=== PATIENT | male | born 1980 ===

== ENCOUNTER 2018-01-28 09:18 | Observation (INO) | payer OTHER ==
[2018-01-28 09:19] VITALS: BMI 27.8
[2018-01-28] MEDS ORDERED: Sodium Chloride 0.9% 1,000 ML IV STA ×2 (09:50→12:59)
[2018-01-28] MEDS ORDERED: Morphine 2 mg/ml ISec IVP STA ×4 (09:50→12:59)
--- NOTE | 2018-01-28 10:06 | ED PDOC ---
Arrival/HPI - General Chief Complaint: Abdominal Pain Time Seen by Provider: 01/28/18 09:35 Historian: Patient - History of Present Illness Narrative History of Present Illness (Text): 01/28/18 10:56 Patient is a 38 yo male with past medical history of hernia repair, cholecystectomy, and as per the patient "gastroparesis", presents to the Emergency Department with history of abdominal pain and vomiting since last night. Patient states that he "ate a buffet" last night, then had episode of vomiting last night but no pain at that time. He states he woke up this morning at 6 am with return of nausea and vomiting and left sided abdominal pain. He states he gets this frequently over the past few years and episode currently is similar to past episodes. Denies hematemesis. Denies dark or bloody stools. Denies back pain or chest pain. Denies fevers or chills. Denies chest pain or shortness of breath. Time/Duration: Prior to Arrival Symptom Onset: Gradual Past Medical History - Cardiac Hx Cardiac Disorders: Yes Hx Hypertension: Yes - Pulmonary Hx Respiratory Disorders: No - Neurological Hx Neurological Disorder: No - HEENT Hx HEENT Disorder: No - Renal Hx Renal Disorder: No - Endocrine/Metabolic Hx Endocrine Disorders: Yes Hx Diabetes Mellitus Type 1: Yes - Hematological/Oncological Hx Blood Disorders: No - Integumentary Hx Dermatological Disorder: No - Musculoskeletal/Rheumatological Hx Musculoskeletal Disorders: No - Gastrointestinal Hx Gastrointestinal Disorders: No - Genitourinary/Gynecological Hx Genitourinary Disorders: No - Psychiatric Hx Psychophysiologic Disorder: No Hx Substance Use: No - Surgical History Hx Cholecystectomy: Yes - Anesthesia Hx Anesthesia: Yes Hx Anesthesia Reactions: No Family/Social History Family/Social History: Unknown Family HX Smoking Status: Light Smoker < 10 Cigarettes Daily Hx Alcohol Use: No Hx Substance Use: No Allergies/Home Meds Allergies/Adverse Reactions: Allergies No Known Allergies Allergy (Verified 09/08/17 11:17) Home Medications: Home Meds Medication Instructions Recorded Confirmed Atorvastatin [Lipitor] 40 mg PO QPM 09/08/17 09/08/17 Dicyclomine [Dicyclomine HCl] 10 mg PO QID 09/08/17 09/08/17 Docusate [Colace] 100 mg PO BID 09/08/17 09/08/17 Famotidine 20 mg PO DAILY 09/08/17 09/08/17 Glimepiride 2 mg PO DAILY 09/08/17 09/08/17 MetFORMIN [glucOPHAGE] 1,000 mg PO BID 09/08/17 09/08/17 Metoclopramide [Reglan] 10 mg PO QID 09/08/17 09/08/17 Omeprazole 20 mg PO DAILY 09/08/17 09/08/17 Ondansetron [Zofran] 8 mg PO Q8 PRN 09/08/17 09/08/17 Review of Systems - Review of Systems Constitutional: absent: Fevers Eyes: absent: Vision Changes ENT: absent: Hearing Changes Respiratory: absent: SOB Cardiovascular: absent: Chest Pain, Palpitations Gastrointestinal: Abdominal Pain, Nausea, Vomiting. absent: Constipation, Diarrhea, Hematochezia, Hematemesis Genitourinary Male: absent: Dysuria, Frequency Musculoskeletal: absent: Back Pain Skin: absent: Rash Neurological: absent: Headache, Dizziness, Focal Weakness Endocrine: absent: Polyuria Hemo/Lymphatic: absent: Easy Bleeding Psychiatric: absent: Depression Physical Exam - Physical Exam Narrative Physical Exam (Text): 01/28/18 11:01 Head: Atraumatic. Normocephalic. Eyes: PERRL. EOMI. Conjunctivae are not pale. No jaundice. ENT: Mucous membranes are dry. Oropharynx is clear and symmetric. Neck: Supple. Full ROM. No JVD. No lymphadenopathy. No meningeal signs. Cardiovascular: Regular rate. Regular rhythm. No murmurs, rubs, or gallops. Distal pulses are intact. Pulmonary/Chest: No evidence of respiratory distress. Clear to auscultation bilaterally. No wheezing, rales or rhonchi. Abdominal: Soft and non-distended. Diffuse tenderness most pronuounce in left lower quadrant, no pulsatile masses, no incarcerated hernia palpated. Back: No CVA tenderness. No deformity. Extremities: No edema. No cyanosis. No clubbing. Full range of motion in all extremities. No calf tenderness. Skin: Skin is warm and dry. No petechiae. No purpura. Neurological: Alert, awake, and oriented. No slurred speech. Motor and sensory exam intact. Psychiatric: Good eye contact. Normal interaction, affect, and behavior. Vital Signs Reviewed: Yes Vital Signs Temp Pulse Resp BP Pulse Ox 01/28/18 15:42 71 18 135/94 H 98 01/28/18 13:40 77 16 131/74 100 01/28/18 12:00 87 18 150/66 99 01/28/18 11:24 87 18 154/64 H 100 01/28/18 10:20 92 H 19 149/75 99 01/28/18 09:25 97.9 F 83 18 135/98 H 100 Temperature: Afebrile Pulse: Regular Appearance: Positive for: Ill-Appearing, Uncomfortable Pain Distress: Moderate Mental Status: Positive for: Alert and Oriented X 3 Finger Stick Blood Glucose: 177 Medical Decision Making ED Course and Treatment: 01/28/18 11:05 Patient reports prior history of gastroparesis and states current symptoms similar to past episodes. On exam, he has diffuse pain, no rebound or guarding. IV fluids and zofran ordered after review of medication and allergies/side effects. Prior available visits reviewed, prior ultrasound reviewed. Patient states he was outside facility "2 months ago" for similar symptoms. He cannot provide name of his GI doctor at this time. Will continue serial exams, iv hydration. 01/28/18 11:36 Re-exam, patient with persistent "severe" pain. Re-exam he has focal tenderness to LLQ. CT abdomen/pelvis ordered. He denies allergies. I have reviewed risks of CT abdomen/pelvis in terms of radiation. Indication for CT is persistent severe pain that is localizing, evaluate for inflammatory/infectious or surgical process. 01/28/18 15:54 CT with no acute intraabdominal findings. Left sided pain and nausea persists. No chest pain or shortness of breath. No headache or neuro deficits. No fever. No rash. No colicky pain. Limitations of CT reviewed with patient, as symptoms persistent despite multiple boluses of medication, will admit to hospitalist service for serial exams, monitoring of symptoms. Treatment plan reviewed with patient and family, in agreement. 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 - Lab Interpretations Lab Results: 01/28/18 09:30 01/28/18 09:30 Lab Results 01/28/18 12:45: Urine Color Light yellow, Urine Appearance Clear, Urine pH 8.0, Ur Specific [place] 1.010, Urine Protein Negative, Urine Glucose (UA) Negative, Urine Ketones 15 H, Urine Blood Negative, Urine Nitrate Negative, Urine Bilirubin Negative, Urine Urobilinogen 0.2, Ur Leukocyte Esterase Negative 01/28/18 09:46: POC Glucose (mg/dL) 177 H 01/28/18 09:30: Sodium 141, Potassium 4.3, Chloride 105, Carbon Dioxide 24, Anion Gap 16, BUN 10, Creatinine 0.7 L, Est GFR ( Amer) > 60, Est GFR ( Non-Af Amer) > 60, Random Glucose 171 H, Calcium 9.6, Total Bilirubin 0.9, AST 29, ALT 48, Alkaline Phosphatase 88, Total Protein 7.7, Albumin 4.5, Globulin 3.2, Albumin/Globulin Ratio 1.4, Amylase 108, Lipase 157 01/28/18 09:30: PT 12.5, INR 1.09, APTT 28.1 01/28/18 09:30: WBC 9.5, RBC 5.39, Hgb 15.8, Hct 45.9, MCV 85.2, MCH 29.3, MCHC 34.4, RDW 13.2, Plt Count 197, MPV 9.9, Gran % 77.9 H, Lymph % (Auto) 17.0 L, [place] % (Auto) 3.9, Eos % (Auto) 0.8 L, Baso % (Auto) 0.4, Gran # 7.39 H, Lymph # (Auto) 1.6, [place] # (Auto) 0.4, Eos # (Auto) 0.1, Baso # (Auto) 0.04 - RAD Interpretation Narrative RAD Interpretations (Text): 01/28/18 14:46 Procedure: CT Abdomen and Pelvis with contrast Impression: No acute intra-abdominal findings. Dictator: Morro Holden MD Radiology Orders: 01/28/18 11:36 ABD & PELVIS IV CONTRAST ONLY [CT] Stat Pearl Glue Operator: Radiologist - EKG Interpretation EKG Interpretation (Text): EKG at 1127 normal sinus rhythm rate of [address] elevations Interpreted by ED Physician: Yes Type: 12 lead EKG - Medication Orders Current Medication Orders: Discontinued Medications Famotidine (Pepcid) 20 mg IVP STAT STA Stop: 01/28/18 09:51 Last Admin: 01/28/18 10:07 Dose: 20 mg IVP Administration Document 01/28/18 10:07 SF (Rec: 01/28/18 10:08 [email or web address] Charges for Administration # of IVP Administrations 1 Sodium Chloride (Sodium Chloride 0.9%) 1,000 mls @ 1,000 mls/hr IV .Q1H STA Stop: 01/28/18 10:49 Last Admin: 01/28/18 09:50 Dose: 1,000 mls/hr eMAR Start Stop Document 01/28/18 09:50 SF (Rec: 01/28/18 10:04 [email or web address] Intravenous Solution Start Date 01/28/18 Start Time 09:50 End Date 01/28/18 End time 10:50 Total Infusion Time 60 Sodium Chloride (Sodium Chloride 0.9%) 1,000 mls @ 1,000 mls/hr IV .Q1H STA Stop: 01/28/18 13:58 Last Admin: 01/28/18 13:04 Dose: 1,000 mls/hr eMAR Start Stop Document 01/28/18 13:04 SF (Rec: 01/28/18 13:04 [email or web address] Intravenous Solution Start Date 01/28/18 Start Time 13:04 End Date 01/28/18 End time 14:04 Total Infusion Time 60 Morphine Sulfate (Morphine) 2 mg IVP STAT STA Stop: 01/28/18 10:07 Last Admin: 01/28/18 10:21 Dose: 2 mg MAR Pain Assessment Document 01/28/18 10:21 SF (Rec: 01/28/18 10:21 [email or web address] Pain Reassessment Is this a pain reassessment? Yes Sleep Is patient sleeping during reassessment? No Presence of Pain Presence of Pain Yes IVP Administration Document 01/28/18 10:21 SF (Rec: 01/28/18 10:21 [email or web address] Charges for Administration # of IVP Administrations 1 Morphine Sulfate (Morphine) 2 mg IVP STAT STA Stop: 01/28/18 11:29 Last Admin: 01/28/18 11:32 Dose: 2 mg MAR Pain Assessment Document 01/28/18 11:32 SF (Rec: 01/28/18 11:32 [email or web address] Pain Reassessment Is this a pain reassessment? Yes Sleep Is patient sleeping during reassessment? No Presence of Pain Presence of Pain Yes Pain Scale Used Pain Scale Used Numeric Location Left, Right or Bilateral Left Upper or Lower Upper Description Description Constant IVP Administration Document 01/28/18 11:32 SF (Rec: 01/28/18 11:32 [email or web address] Charges for Administration # of IVP Administrations 1 Morphine Sulfate (Morphine) 2 mg IVP STAT STA Stop: 01/28/18 13:00 Last Admin: 01/28/18 13:00 Dose: Ondansetron HCl (Zofran Inj) 4 mg IVP ONCE ONE Stop: 01/28/18 09:51 Last Admin: 01/28/18 10:04 Dose: Ondansetron HCl (Zofran Inj) 4 mg IVP ONCE ONE Stop: 01/28/18 10:19 Last Admin: 01/28/18 10:21 Dose: 4 mg IVP Administration Document 01/28/18 10:21 SF (Rec: 01/28/18 10:21 [email or web address] Charges for Administration # of IVP Administrations 1 - Scribe Statement The provider has reviewed the documentation as recorded by the Everardo Parker All medical record entries made by the Kieraibpineda were at my direction and personally dictated by me. I have reviewed the chart and agree that the record accurately reflects my personal performance of the history, physical exam, medical decision making, and the department course for this patient. I have also personally directed, reviewed, and agree with the discharge instructions and disposition. Disposition/Present on Arrival - Present on Arrival Any Indicators Present on Arrival: No History of DVT/PE: No History of Uncontrolled Diabetes: No Urinary Catheter: No History of Decub. Ulcer: No History Surgical Site Infection Following: None - Disposition Have Diagnosis and Disposition been Completed?: Yes Diagnosis: Abdominal pain, Intractable nausea and vomiting Disposition: HOSPITALIZED Disposition Time: 15:56 Patient Plan: Admission, Observation Condition: FAIR Forms: [employer] (Kinyarwanda)
[2018-01-28 10:09] LABS: BASO # 0.04 K/mm3 (0.0-2.0); BASO % 0.4 % (0.0-3.0); EOS # 0.1 (0.0-0.7); EOS % 0.8 % (1.5-5.0); GRAN # 7.39 (1.4-6.5); GRAN % 77.9 % (50.0-68.0); HEMOGLOBIN 15.8 g/dL (14.0-18.0); LYMPH # 1.6 (1.2-3.4); MEAN CELL VOLUME 85.2 fl (80.0-105.0); MEAN CORPUSCULAR HEMOGLOBIN 29.3 pg (25.0-35.0); MEAN CORPUSCULAR HGB CONC 34.4 g/dl (31.0-37.0); MEAN PLATELET VOLUME 9.9 fl (7.0-11.0); MONO # 0.4 (0.1-0.6); MONO % 3.9 % (1.0-6.0); RBC 5.39 10^6/uL (3.5-6.1); RED CELL DISTRIBUTION WIDTH 13.2 % (11.5-14.5); WHITE BLOOD COUNT 9.5 10^3/ul (4.5-11.0)
[2018-01-28 10:12] LABS: ALB/GLOB RATIO 1.4 (1.1-1.8); ALBUMIN 4.5 g/dL (3.0-4.8); ALT/SGPT 48 U/L (7-56); AMYLASE 108 U/L (35-125); AST/SGOT 29 U/L (17-59); BLOOD UREA NITROGEN 10 mg/dL (7-21); CALCIUM 9.6 mg/dL (8.4-10.5); GFR NON-AFRICAN AMERICAN > 60; LIPASE 157 U/L (23-300)
[2018-01-28 10:13] LABS: INR 1.09; PARTIAL THROMBOPLASTIN TIME 28.1 Seconds (25.1-36.5); PROTHROMBIN TIME 12.5 SECONDS (9.4-12.5)
[2018-01-28] MEDS ORDERED: Iohexol 350 MG/100 ML VIAL ONE (11:42)
--- NOTE | 2018-01-28 12:57 | CT ---
Date of service: 01/28/2018 PROCEDURE: CT Abdomen and Pelvis with contrast HISTORY: llq abdominal pain COMPARISON: None. TECHNIQUE: Contrast dose: 100 cc of Omni 350 Radiation dose: Total exam DLP = 684 mGy-cm. This CT exam was performed using one or more of the following dose reduction techniques: Automated exposure control, adjustment of the mA and/or kV according to patient size, and/or use of iterative reconstruction technique. FINDINGS: LOWER THORAX: Unremarkable. LIVER: Unremarkable. No gross lesion or ductal dilatation. GALLBLADDER AND BILE DUCTS: Gallbladder removed PANCREAS: Unremarkable. No gross lesion or ductal dilatation. SPLEEN: Unremarkable. ADRENALS: Unremarkable. No mass. KIDNEYS AND URETERS: Unremarkable. No hydronephrosis. No solid mass. VASCULATURE: Unremarkable. No aortic aneurysm. BOWEL: Unremarkable. No obstruction. No gross mural thickening. APPENDIX: Normal appendix. PERITONEUM: Unremarkable. No free fluid. No free air. LYMPH NODES: Unremarkable. No enlarged lymph nodes. BLADDER: Unremarkable. REPRODUCTIVE: Unremarkable. BONES: No acute fracture. OTHER FINDINGS: None. IMPRESSION: No acute intra-abdominal findings
[2018-01-28 12:58] LABS: URINE APPEARANCE CLEAR (CLEAR); URINE BILIRUBIN NEGATIVE (NEGATIVE); URINE BLOOD NEGATIVE (NEGATIVE); URINE COLOR LIGHT YELLOW (YELLOW); URINE GLUCOSE (UA) NEGATIVE (NEGATIVE); URINE LEUKOCYTE ESTERASE NEGATIVE Leu/uL (NEGATIVE); URINE PROTEIN NEGATIVE mg/dL (<30 mg/dL); URINE UROBILINOGEN 0.2 E.U./dL (<1 E.U./dL)
[2018-01-28 16:27] LABS: ACETAMINOPHEN < 10.0 ug/ml (10.0-20.0); SALICYLATE < 1 mg/dL (2.0-20.0)
[2018-01-28] MEDS ORDERED: Sodium Chloride 0.9% 1,000 ML IV SCH (17:00)
--- NOTE | 2018-01-28 17:06 | CP.PCM.HP ---
<Jose David Burris - Last Filed: 01/28/18 16:57> History of Present Illness - History of Present Illness History of Present Illness: Hospitalist H&P for Dr. Nogueira -- Brock Burris DO PGY2 CC: N/V and abdominal pain HPI: Patient is a 38 yo M with PMH of pre-DM presents to [facility] due to intractable nausea, vomiting, and abdominal pain. Patient states that he went to a buffet last night and had one episode of vomiting afterwards. Patient states that his daughter ate with him and was asymptomatic. 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 Patient also admitted to clots of blood in his vomit today. Patient states that abdominal pain is sharp, constant, and localized to the left side of his abdomen. Patient states that this has happened multiple times over the last 2 years. Of note, patient admitted to daily marijuana use. He stated that these episodes would typically occur if he did not smoke marijuana for a few days, which is consistent with this episode. Otherwise, patient denies recent sick contacts, CP , SOB, fever, chills, VERA, dizziness, diarrhea/constipation, melena, or hematochezia. 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 EtOH use, 3 cigarettes/day for 20 yrs, and daily marijuana use for 20 yrs FHx: Non-contributory Present on Admission - Present on Admission Any Indicators Present on Admission: No Review of Systems - Review of Systems All systems: reviewed and no additional remarkable complaints except (12 point ROS reviewed and is negative other than what is stated in HPI.) Past Patient History - Past Social History Smoking Status: Light Smoker < 10 Cigarettes Daily - CARDIAC Hx Cardiac Disorders: Yes Hx Hypertension: Yes - PULMONARY Hx Respiratory Disorders: No - NEUROLOGICAL Hx Neurological Disorder: No - HEENT Hx HEENT Problems: No - RENAL Hx Chronic Kidney Disease: No - ENDOCRINE/METABOLIC Hx Endocrine Disorders: Yes Hx Diabetes Mellitus Type 1: Yes - HEMATOLOGICAL/ONCOLOGICAL Hx Blood Disorders: No - INTEGUMENTARY Hx Dermatological Problems: No - MUSCULOSKELETAL/RHEUMATOLOGICAL Hx Musculoskeletal Disorders: No - GASTROINTESTINAL Hx Gastrointestinal Disorders: No - GENITOURINARY/GYNECOLOGICAL Hx Genitourinary Disorders: No - PSYCHIATRIC Hx Psychophysiologic Disorder: No Hx Substance Use: No - SURGICAL HISTORY Hx Cholecystectomy: Yes - ANESTHESIA Hx Anesthesia: Yes Hx Anesthesia Reactions: No Meds Allergies/Adverse Reactions: Allergies Allergy/AdvReac Type Severity Reaction Status Date / Time No Known Allergies Allergy Verified 01/28/18 19:09 Physical Exam - Constitutional Appears: In Acute Distress (vomiting) - Head Exam Head Exam: NORMAL INSPECTION - Eye Exam Eye Exam: EOMI, Normal appearance Pupil Exam: Miosis - ENT Exam ENT Exam: Mucous Membranes Moist, Normal Exam - Neck Exam Neck exam: Positive for: Normal Inspection. Negative for: Lymphadenopathy, Tenderness - Respiratory Exam Respiratory Exam: Clear to Auscultation Bilateral. absent: Chest Wall Tenderness, Rales, Rhonchi, Wheezes, Respiratory Distress - Cardiovascular Exam Cardiovascular Exam: RRR, +S1, +S2. absent: Diastolic murmur, Gallop, Rubs, Systolic Murmur - GI/Abdominal Exam GI & Abdominal Exam: Normal Bowel Sounds, Soft, Tenderness (left-sided). absent : Distended, Guarding, Hernia, Mass, Rebound - Extremities Exam Extremities exam: Positive for: normal capillary refill, normal inspection - Neurological Exam Neurological exam: Alert, CN II-XII Intact, Oriented x3 - Psychiatric Exam Psychiatric exam: Normal Affect - Skin Skin Exam: Dry, Intact, Normal Color, Warm Results - Vital Signs Recent Vital Signs: Last Vital Signs Temp 97.8 F 01/28/18 16:46 Pulse 93 H 01/28/18 16:46 Resp 19 01/28/18 16:46 BP 147/95 H 01/28/18 16:46 Pulse Ox 100 01/28/18 16:46 - Labs Result Diagrams: 01/28/18 09:30 01/28/18 09:30 Labs: Laboratory Results - last 24 hr 01/28/18 01/28/18 01/28/18 09:30 09:30 09:30 WBC 9.5 RBC 5.39 Hgb 15.8 Hct 45.9 MCV 85.2 MCH 29.3 MCHC 34.4 RDW 13.2 Plt Count 197 MPV 9.9 Gran % 77.9 H Lymph % (Auto) 17.0 L Rush % (Auto) 3.9 Eos % (Auto) 0.8 L Baso % (Auto) 0.4 Gran # 7.39 H Lymph # (Auto) 1.6 Rush # (Auto) 0.4 Eos # (Auto) 0.1 Baso # (Auto) 0.04 PT 12.5 INR 1.09 APTT 28.1 Sodium 141 Potassium 4.3 Chloride 105 Carbon Dioxide 24 Anion Gap 16 BUN 10 Creatinine 0.7 L Est GFR ( Amer) > 60 Est GFR (Non-Af Amer) > 60 POC Glucose (mg/dL) Random Glucose 171 H Calcium 9.6 Total Bilirubin 0.9 AST 29 ALT 48 Alkaline Phosphatase 88 Total Protein 7.7 Albumin 4.5 Globulin 3.2 Albumin/Globulin Ratio 1.4 Amylase 108 Lipase 157 Urine Color Urine Appearance Urine pH Ur Specific Parker Urine Protein Urine Glucose (UA) Urine Ketones Urine Blood Urine Nitrate Urine Bilirubin Urine Urobilinogen Ur Leukocyte Esterase Salicylates Acetaminophen Alcohol, Quantitative 01/28/18 01/28/18 01/28/18 09:46 12:45 16:05 WBC RBC Hgb Hct MCV MCH MCHC RDW Plt Count MPV Gran % Lymph % (Auto) Rush % (Auto) Eos % (Auto) Baso % (Auto) Gran # Lymph # (Auto) Rush # (Auto) Eos # (Auto) Baso # (Auto) PT INR APTT Sodium Potassium Chloride Carbon Dioxide Anion Gap BUN Creatinine Est GFR ( Amer) Est GFR (Non-Af Amer) POC Glucose (mg/dL) 177 H Random Glucose Calcium Total Bilirubin AST ALT Alkaline Phosphatase Total Protein Albumin Globulin Albumin/Globulin Ratio Amylase Lipase Urine Color Light yellow Urine Appearance Clear Urine pH 8.0 Ur Specific Parker 1.010 Urine Protein Negative Urine Glucose (UA) Negative Urine Ketones 15 H Urine Blood Negative Urine Nitrate Negative Urine Bilirubin Negative Urine Urobilinogen 0.2 Ur Leukocyte Esterase Negative Salicylates < 1 L Acetaminophen < 10.0 L Alcohol, Quantitative 01/28/18 16:05 WBC RBC Hgb Hct MCV MCH MCHC RDW Plt Count MPV Gran % Lymph % (Auto) Rush % (Auto) Eos % (Auto) Baso % (Auto) Gran # Lymph # (Auto) Rush # (Auto) Eos # (Auto) Baso # (Auto) PT INR APTT Sodium Potassium Chloride Carbon Dioxide Anion Gap BUN Creatinine Est GFR ( Amer) Est GFR (Non-Af Amer) POC Glucose (mg/dL) Random Glucose Calcium Total Bilirubin AST ALT Alkaline Phosphatase Total Protein Albumin Globulin Albumin/Globulin Ratio Amylase Lipase Urine Color Urine Appearance Urine pH Ur Specific Parker Urine Protein Urine Glucose (UA) Urine Ketones Urine Blood Urine Nitrate Urine Bilirubin Urine Urobilinogen Ur Leukocyte Esterase Salicylates Acetaminophen Alcohol, Quantitative < 10 Assessment & Plan - Assessment and Plan (Free Text) Assessment: 38 yo M with PMH of pre-DM admitted for evaluation and treatment of intractable nausea, vomiting with blood clots, and abdominal pain. Intractable n/v likely 2/ 2 gastroenteritis vs. marijuana withdrawal. Blood clots likely 2/2 margie cooney tear from repeated retching. Plan: 1. Intractable abdominal pain, nausea, and vomiting with blood clots - CT abd/pelvis negative - LFT's and lipase WNL - Received 2L NS in ED, will continue at 100 cc/hr - Protonix daily - Zofran for nausea; EKG NSR, QTc 445 - Morphine for pain - NPO - GI consulted 2. Substance abuse - Tylenol, EtOH, ASA, and UDS pending - Counselled patient on risks of substance abuse and advised cessation 3. H/o pre-diabetes - Will monitor blood glucose in AM labs - Hold home medications GI/DVT PPx - Protonix - DVT PPx not indicated at this time Patient seen and discussed in detail with Dr. Nogueira. Brock Burris DO PGY2 <Prema Nogueira R - Last Filed: 01/30/18 06:55> Results - Vital Signs Recent Vital Signs: Last Vital Signs Temp 98.0 F 01/29/18 06:00 Pulse 86 01/29/18 06:00 Resp 20 01/29/18 06:00 BP 126/85 01/29/18 06:00 Pulse Ox 100 01/29/18 06:00 - Labs Result Diagrams: 01/29/18 07:00 01/29/18 07:00 Labs: Laboratory Results - last 24 hr 01/29/18 01/29/18 01/29/18 07:00 07:00 08:30 WBC 12.3 H D RBC 4.78 Hgb 13.5 L D Hct 41.3 L MCV 86.4 MCH 28.2 MCHC 32.7 RDW 13.3 Plt Count 182 MPV 9.9 Sodium 141 Potassium 3.3 L Chloride 107 Carbon Dioxide 26 Anion Gap 11 BUN 10 Creatinine 0.7 L Est GFR ( Amer) > 60 Est GFR (Non-Af Amer) > 60 POC Glucose (mg/dL) 105 Random Glucose 88 Calcium 8.6 Phosphorus 2.7 Magnesium 2.1 Total Bilirubin 0.5 AST 33 ALT 41 Alkaline Phosphatase 65 Total Protein 6.1 Albumin 3.6 Globulin 2.6 Albumin/Globulin Ratio 1.4 Urine Opiates Screen Urine Methadone Screen Ur Barbiturates Screen Ur Phencyclidine Scrn Ur Amphetamines Screen U Benzodiazepines Scrn U Oth Cocaine Metabols U Cannabinoids Screen 01/29/18 01/29/18 08:55 11:39 WBC RBC Hgb Hct MCV MCH MCHC RDW Plt Count MPV Sodium Potassium Chloride Carbon Dioxide Anion Gap BUN Creatinine Est GFR ( Amer) Est GFR (Non-Af Amer) POC Glucose (mg/dL) 94 Random Glucose Calcium Phosphorus Magnesium Total Bilirubin AST ALT Alkaline Phosphatase Total Protein Albumin Globulin Albumin/Globulin Ratio Urine Opiates Screen Positive H Urine Methadone Screen Negative Ur Barbiturates Screen Negative Ur Phencyclidine Scrn Negative Ur Amphetamines Screen Negative U Benzodiazepines Scrn Negative U Oth Cocaine Metabols Negative U Cannabinoids Screen Positive H Attending/Attestation - Attestation I have personally seen and examined this patient.: Yes I have fully participated in the care of the patient.: Yes I have reviewed all pertinent clinical information: Yes Notes (Text): Patient seen and examined by me at 4:15PM with resident 01/28/18. Case including HPI, physical exam, and assessment and plan discussed with resident. Agree with above with following additions/corrections. Patient is a 38 year old male with past medical history significant for prediabetes, chronic marijuana use, abdominal pain, and ?gastroparesis that presented to the hospital with intractable nausea, vomiting, no abdominal pain. Patient states that he went type of a last night around 7 PM. He states around 8 PM he started to have abdominal pain and threw up once. Vomitus was nonbilious and nonbloody. Patient states he woke up the next morning to go to work when he started to feel nauseous and continued to have abdominal pain. He states he threw up approximately 9-10 times throughout the day and then presented to the emergency room. Patient states that he now notices blood and some blood clots in his vomit. Abdominal pain is mostly left-sided and radiates to the back. Pain is sharp and constant. Patient did not try any medications for this at home. Pain medications in the emergency room are helping the pain. Patient states that this has happened in the past. Patient states last marijuana use was approximately 2-3 days ago. He denies any headaches or dizziness. No fevers or chills. No chest pain or shortness of breath. No dysuria. No diarrhea or constipation. 12 point review of systems reviewed by me. Please see HPI. All other systems are negative. Family History: Mom is alive and healthy. Father is alive and healthy. Medications at home: Patient takes Percocet once in a while for abdominal pain Physical exam: General: Awake and alert sitting up in bed in mild distress HEENT: Normocephalic atraumatic. Pupils equal reactive. No scleral icterus. Oropharynx is pink and moist. No pharyngeal erythema or exudate appreciated. Neck is supple. Hearing grossly intact. Ears and nose externally unremarkable Cardiovascular: Normal rhythm. Normal S1, S2. No murmurs, rubs, or gallops appreciated Pulmonary: Normal respiratory effort. No rhonchi, rales or wheezing appreciated. Gastrointestinal: Soft, nondistended. Positive generalized tenderness. Positive bowel sounds all 4 quadrants, no guarding. No organomegaly appreciated. Musculoskeletal: Normal range of motion all extremities, no calf tenderness, no edema appreciated. No CVA tenderness. Central nervous system: AAOx3. CN2-12 grossly intact. 5/5 muscle strength all extremities. Dermatologic: Skin warm and dry Assessment and plan: Patient is a 38 year old male with past medical history significant for pre-diabetes, chronic marijuana use, abdominal pain, and ? gastroparesis that presented to the hospital with intractable nausea, vomiting, no abdominal pain. 1. Abdominal pain. Intractable nausea and vomiting. GI consulted, follow-up recommendations. Zofran as needed. Placed on pain medications. CT abdomen and pelvis per radiology showed no acute intra-abdominal findings. Nothing by mouth. Placed on IV fluids. 2. Substance abuse. UDS positive for marijuana. Patient counseled at length on cessation. 3. History of pre-diabetes. Patient is currently not taking daily medications. We'll monitor blood glucose for now. 4. GI/ DVT prophylaxis. Protonix and ambulation. Case was discussed in detail with the patient regarding current diagnosis and treatment plan.
[2018-01-28] MEDS ORDERED: Morphine 2 mg/ml ISec IVP PRN (17:14)
--- NOTE | 2018-01-28 17:33 | CARD ---
APPROVED REPORT Date of service: 01/28/2018 EKG Measurement Heart [id number] <Conclusion> Normal sinus rhythm Normal ECG
[2018-01-28 18:46] VITALS: RESP 20
[2018-01-28] MEDS ORDERED: Pneumococcal 23-Valent Vaccine IM ONE (23:27)
--- NOTE | 2018-01-29 06:34 | CP.PCM.PN ---
Subjective - Date & Time of Evaluation Date of Evaluation: 01/29/18 Time of Evaluation: 07:10 - Subjective Subjective: PGY-1 Vanessa Larsen D.O. Medicine progress note for Dr. Nogueira's service: Patient was seen and examined this morning. Objective - Vital Signs/Intake and Output Vital Signs (last 24 hours): Temp Pulse Resp BP Pulse Ox 98.8 F 98 H 20 151/108 H 98 01/28/18 23:08 01/28/18 23:08 01/28/18 23:08 01/28/18 23:08 01/28/18 18:45 - Medications Medications: Current Medications Sodium Chloride (Sodium Chloride 0.9%) 1,000 mls @ 100 mls/hr IV .Q10H INOCENCIA Last Admin: 01/28/18 18:00 Dose: 100 mls/hr Morphine Sulfate (Morphine) 1 mg IVP Q6H PRN PRN Reason: Pain, severe (8-10) Last Admin: 01/29/18 02:20 Dose: 1 mg Ondansetron HCl (Zofran Inj) 4 mg IVP Q6H PRN PRN Reason: Nausea/Vomiting Last Admin: 01/29/18 06:04 Dose: 4 mg Pantoprazole Sodium (Protonix Inj) 40 mg IVP DAILY INOCENCIA - Labs Labs: PT 12.5 SECONDS (9.4-12.5) 01/28/18 09:30 INR 1.09 01/28/18 09:30 APTT 28.1 Seconds (25.1-36.5) 01/28/18 09:30
[2018-01-29 06:55] VITALS: BP 126/85; PULSE 86; TEMP 98; O2SAT 100
[2018-01-29] MEDS ORDERED: Dextrose 50% SYRINGE Inj (50 ml) IV PRN (08:10)
[2018-01-29 08:11] LABS: HEMOGLOBIN 13.5 g/dL (14.0-18.0); MEAN CELL VOLUME 86.4 fl (80.0-105.0); MEAN CORPUSCULAR HEMOGLOBIN 28.2 pg (25.0-35.0); MEAN CORPUSCULAR HGB CONC 32.7 g/dl (31.0-37.0); MEAN PLATELET VOLUME 9.9 fl (7.0-11.0); RBC 4.78 10^6/uL (3.5-6.1); RED CELL DISTRIBUTION WIDTH 13.3 % (11.5-14.5); WHITE BLOOD COUNT 12.3 10^3/ul (4.5-11.0)
[2018-01-29 08:54] LABS: ALB/GLOB RATIO 1.4 (1.1-1.8); ALBUMIN 3.6 g/dL (3.0-4.8); ALT/SGPT 41 U/L (7-56); AST/SGOT 33 U/L (17-59); BLOOD UREA NITROGEN 10 mg/dL (7-21); CALCIUM 8.6 mg/dL (8.4-10.5); GFR NON-AFRICAN AMERICAN > 60
[2018-01-29 09:34] LABS: BARBITURATES, UR NEGATIVE (NEGATIVE); BENZODIAZEPINES, UR NEGATIVE (NEGATIVE); OPIATES, UR POSITIVE (NEGATIVE); PHENCYCLIDINE, UR NEGATIVE (NEGATIVE)
--- NOTE | 2018-01-29 09:58 | CP.PCM.DIS ---
Provider - Provider Date of Admission: 01/28/18 15:50 Attending physician: Prema Nogueira DO Primary care physician: Dr. Nicolas Consults: GI (Kan) Time Spent in preparation of Discharge (in minutes): 45 Diagnosis - Discharge Diagnosis (1) Intractable nausea and vomiting Status: Acute Priority: High (2) Marijuana abuse, continuous Status: Chronic Priority: Medium Hospital Course - Lab Results Lab Results: Most Recent Lab Values WBC 12.3 10^3/ul (4.5-11.0) H D 01/29/18 07:00 RBC 4.78 10^6/uL (3.5-6.1) 01/29/18 07:00 Hgb 13.5 g/dL (14.0-18.0) L D 01/29/18 07:00 Hct 41.3 % (42.0-52.0) L 01/29/18 07:00 MCV 86.4 fl (80.0-105.0) 01/29/18 07:00 MCH 28.2 pg (25.0-35.0) 01/29/18 07:00 MCHC 32.7 g/dl (31.0-37.0) 01/29/18 07:00 RDW 13.3 % (11.5-14.5) 01/29/18 07:00 Plt Count 182 10^3/uL (120.0-450.0) 01/29/18 07:00 MPV 9.9 fl (7.0-11.0) 01/29/18 07:00 Gran % 77.9 % (50.0-68.0) H 01/28/18 09:30 Lymph % (Auto) 17.0 % (22.0-35.0) L 01/28/18 09:30 Ponce % (Auto) 3.9 % (1.0-6.0) 01/28/18 09:30 Eos % (Auto) 0.8 % (1.5-5.0) L 01/28/18 09:30 Baso % (Auto) 0.4 % (0.0-3.0) 01/28/18 09:30 Gran # 7.39 (1.4-6.5) H 01/28/18 09:30 Lymph # (Auto) 1.6 (1.2-3.4) 01/28/18 09:30 Ponce # (Auto) 0.4 (0.1-0.6) 01/28/18 09:30 Eos # (Auto) 0.1 (0.0-0.7) 01/28/18 09:30 Baso # (Auto) 0.04 K/mm3 (0.0-2.0) 01/28/18 09:30 PT 12.5 SECONDS (9.4-12.5) 01/28/18 09:30 INR 1.09 01/28/18 09:30 APTT 28.1 Seconds (25.1-36.5) 01/28/18 09:30 Sodium 141 mmol/L (132-148) 01/29/18 07:00 Potassium 3.3 mmol/L (3.6-5.0) L 01/29/18 07:00 Chloride 107 mmol/L (98-107) 01/29/18 07:00 Carbon Dioxide 26 mmol/L (21-33) 01/29/18 07:00 Anion Gap 11 (10-20) 01/29/18 07:00 BUN 10 mg/dL (7-21) 01/29/18 07:00 Creatinine 0.7 mg/dl (0.8-1.5) L 01/29/18 07:00 Est GFR ( Amer) > 60 01/29/18 07:00 Est GFR (Non-Af Amer) > 60 01/29/18 07:00 POC Glucose (mg/dL) 105 mg/dL (65-110) 01/29/18 08:30 Random Glucose 88 mg/dL (70-110) 01/29/18 07:00 Calcium 8.6 mg/dL (8.4-10.5) 01/29/18 07:00 Phosphorus 2.7 mg/dL (2.5-4.5) 01/29/18 07:00 Magnesium 2.1 mg/dL (1.7-2.2) 01/29/18 07:00 Total Bilirubin 0.5 mg/dL (0.2-1.3) 01/29/18 07:00 AST 33 U/L (17-59) 01/29/18 07:00 ALT 41 U/L (7-56) 01/29/18 07:00 Alkaline Phosphatase 65 U/L (38-126) 01/29/18 07:00 Total Protein 6.1 g/dL (5.8-8.3) 01/29/18 07:00 Albumin 3.6 g/dL (3.0-4.8) 01/29/18 07:00 Globulin 2.6 gm/dL 01/29/18 07:00 Albumin/Globulin Ratio 1.4 (1.1-1.8) 01/29/18 07:00 Amylase 108 U/L (35-125) 01/28/18 09:30 Lipase 157 U/L (23-300) 01/28/18 09:30 Urine Color Light yellow (YELLOW) 01/28/18 12:45 Urine Appearance Clear (CLEAR) 01/28/18 12:45 Urine pH 8.0 (4.7-8.0) 01/28/18 12:45 Ur Specific [place] 1.010 (1.005-1.035) 01/28/18 12:45 Urine Protein Negative mg/dL (<30 mg/dL) 01/28/18 12:45 Urine Glucose (UA) Negative mg/dL (NEGATIVE) 01/28/18 12:45 Urine Ketones 15 mg/dL (NEGATIVE) H 01/28/18 12:45 Urine Blood Negative (NEGATIVE) 01/28/18 12:45 Urine Nitrate Negative (NEGATIVE) 01/28/18 12:45 Urine Bilirubin Negative (NEGATIVE) 01/28/18 12:45 Urine Urobilinogen 0.2 E.U./dL (<1 E.U./dL) 01/28/18 12:45 Ur Leukocyte Esterase Negative Aleida/uL (NEGATIVE) 01/28/18 12:45 Salicylates < 1 mg/dL (2.0-20.0) L 01/28/18 16:05 Urine Opiates Screen Positive (NEGATIVE) H 01/29/18 08:55 Urine Methadone Screen Negative (NEGATIVE) 01/29/18 08:55 Acetaminophen < 10.0 ug/ml (10.0-20.0) L 01/28/18 16:05 Ur Barbiturates Screen Negative (NEGATIVE) 01/29/18 08:55 Ur Phencyclidine Scrn Negative (NEGATIVE) 01/29/18 08:55 Ur Amphetamines Screen Negative (NEGATIVE) 01/29/18 08:55 U Benzodiazepines Scrn Negative (NEGATIVE) 01/29/18 08:55 U Oth Cocaine Metabols Negative (NEGATIVE) 01/29/18 08:55 U Cannabinoids Screen Positive (NEGATIVE) H 01/29/18 08:55 Alcohol, Quantitative < 10 mg/dL (0-10) 01/28/18 16:05 - Hospital Course Hospital Course: Patient is a 38 yo M with PMH of pre-DM presents to [facility] due to intractable nausea, vomiting, and abdominal pain. Patient states that he went to a buffet last night and had one episode of vomiting afterwards. Patient states that his daughter ate with him and was asymptomatic. 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 Patient also admitted to clots of blood in his vomit today. Patient states that abdominal pain is sharp, constant, and localized to the left side of his abdomen. Patient states that this has happened multiple times over the last 2 years. Of note, patient admitted to daily marijuana use. He stated that these episodes would typically occur if he did not smoke marijuana for a few days, which is consistent with this episode. Otherwise, patient denies recent sick contacts, CP , SOB, fever, chills, VERA, dizziness, diarrhea/constipation, melena, or hematochezia. CT A/P did not show acute findings. GI saw the patient and conclude daily marijuana use may have contributed to cyclical vomiting syndrome and or idiopathic gastroparesis. Patient will benefit from outpatient gastric emptying study. Upon discharge, patient was tolerating a regular diet. He was no longer having nausea or vomiting. His blood glucose were well controlled. Discharge Exam - Head Exam Head Exam: NORMAL INSPECTION - Eye Exam Eye Exam: EOMI, Normal appearance, PERRL - ENT Exam ENT Exam: Mucous Membranes Moist, Normal Exam - Neck Exam Neck exam: Full Rom, Normal Inspection - Respiratory Exam Respiratory Exam: Clear to PA & Lateral, NORMAL BREATHING PATTERN, UNREMARKABLE - Cardiovascular Exam Cardiovascular Exam: REGULAR RHYTHM, +S1, +S2 - GI/Abdominal Exam GI & Abdominal Exam: Normal Bowel Sounds, Soft, Unremarkable. absent: Tenderness - Rectal Exam Rectal Exam: Deferred - Extremities Exam Extremities exam: normal inspection, pedal pulses present - Back Exam Back exam: NORMAL INSPECTION - Neurological Exam Neurological exam: Alert, CN II-XII Intact, Normal Gait, Oriented x3 - Psychiatric Exam Psychiatric exam: Normal Affect, Normal Mood - Skin Skin Exam: Dry, Intact, Normal Color, Warm Discharge Plan - Discharge Medications Prescriptions: Ondansetron [Zofran] 4 mg PO Q8H #5 tab - Follow Up Plan Condition: IMPROVED Disposition: HOME/ ROUTINE Patient education suggested?: Yes Instructions: Acute Abdomen (Belly Pain), Adult (DC), Nausea and Vomiting, Adult (DC), Quitting Smoking, Marijuana Use and Addiction (DC) Additional Instructions: You are being discharged from [facility]. You are highly encouraged to stop smoking marijuana. You may resume your home medications for diabetes. You may take Zofran 4 mg every 8 hours as needed for nausea. Discontinue Percocet. Please follow-up with your primary care physician, Dr. Nicolas, within 3-5 days of discharge. Also, please follow-up with your electronic prepress system operator within 1 week of discharge. If symptoms return, please present to the nearest emergency room.
[2018-01-29] MEDS ORDERED: Potassium Chloride 20 mEq ER Tab PO ONE (10:05)
--- NOTE | 2018-01-29 10:58 | CP.PCM.CON ---
<Jose Rafael Ingram - Last Filed: 01/29/18 10:50> History of Present Illness - History of Present Illness History of Present Illness: GI Fellow PGY4, consult note Delano Rosas is an interesting 38M with history of chronic abdominal pain/N/V, DM who presents with intractable vomiting. 2 days ago, patient developed several large, forceful episodes of emesis that eventually became bloody. He then developed abdominal pain shortly after. He generally takes zofran at home when these events happen, but could not keep it down this time. Patient had BM yesterday, and was brown, no melena. He is feeling better after zofran IV and NPO. Patient is hungry now. No severe abdominal pain. Importantly, patient use marijuana chronically and daily. He also uses opiate medications frequently. He has an appointment with a GI physician in [place] in 2 weeks. PMHx - as above. PSHx - lap nakita FMHx - unremarkable SocHx - heavy marijuana user, denies recent etoh. 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 12pt ROS neg except for above. Past Patient History - Past Social History Smoking Status: Former Smoker - CARDIAC Hx Cardiac Disorders: Yes Hx Hypertension: Yes - PULMONARY Hx Respiratory Disorders: No - NEUROLOGICAL Hx Neurological Disorder: No - HEENT Hx HEENT Problems: No - RENAL Hx Chronic Kidney Disease: No - ENDOCRINE/METABOLIC Hx Endocrine Disorders: Yes Hx Diabetes Mellitus Type 1: Yes - HEMATOLOGICAL/ONCOLOGICAL Hx Blood Disorders: No - INTEGUMENTARY Hx Dermatological Problems: No - MUSCULOSKELETAL/RHEUMATOLOGICAL Hx Musculoskeletal Disorders: No Hx Falls: No - GASTROINTESTINAL Hx Gastrointestinal Disorders: Yes (INGUINAL HERNIA REPAIR) Hx Gall Bladder Disease: Yes (CHOLECYSTECTOMY) - GENITOURINARY/GYNECOLOGICAL Hx Genitourinary Disorders: No - PSYCHIATRIC Hx Psychophysiologic Disorder: Yes (MARIJUANA USE DAILY X 20 YRS) Hx Substance Use: No - SURGICAL HISTORY Hx Surgeries: Yes Hx Cholecystectomy: Yes - ANESTHESIA Hx Anesthesia: Yes Hx Anesthesia Reactions: No Meds Allergies/Adverse Reactions: Allergies Allergy/AdvReac Type Severity Reaction Status Date / Time No Known Allergies Allergy Verified 01/28/18 19:09 - Medications Medications: Current Medications Dextrose (Dextrose 50% Inj) 0 ml IV STAT PRN; Protocol PRN Reason: Hypoglycemia Protocol Sodium Chloride (Sodium Chloride 0.9%) 1,000 mls @ 100 mls/hr IV .Q10H INOCENCIA Last Admin: 01/28/18 18:00 Dose: 100 mls/hr Dextrose (Dextrose 5% In Water 1000 Ml) 1,000 mls @ 0 mls/hr IV .Q0M PRN; Protocol; Per Protocol PRN Reason: Hypoglycemia Protocol Insulin Human Lispro (Humalog Low) 0 units SC ACHS INOCENCIA PRN Reason: Protocol Ondansetron HCl (Zofran Inj) 4 mg IVP Q6H PRN PRN Reason: Nausea/Vomiting Last Admin: 01/29/18 06:04 Dose: 4 mg Pantoprazole Sodium (Protonix Inj) 40 mg IVP DAILY [facility] Last Admin: 01/29/18 09:30 Dose: 40 mg Physical Exam - Constitutional Appears: Well, No Acute Distress - Head Exam Head Exam: NORMAL INSPECTION - Eye Exam Eye Exam: Normal appearance - ENT Exam ENT Exam: Mucous Membranes Moist, Normal Exam - Neck Exam Neck exam: Positive for: Normal Inspection - Respiratory Exam Respiratory Exam: Clear to Auscultation Bilateral, NORMAL BREATHING PATTERN - Cardiovascular Exam Cardiovascular Exam: REGULAR RHYTHM, +S1, +S2 - GI/Abdominal Exam GI & Abdominal Exam: Normal Bowel Sounds, Soft, Tenderness. absent: Distended Additional comments: Mild tenderness to the LUQ - Extremities Exam Extremities exam: Positive for: normal inspection - Neurological Exam Neurological exam: Alert, CN II-XII Intact, Oriented x3 - Psychiatric Exam Psychiatric exam: Normal Affect, Normal Mood - Skin Skin Exam: Dry, Normal Color Results - Vital Signs Recent Vital Signs: Last Vital Signs Temp 98.0 F 01/29/18 06:00 Pulse 86 01/29/18 06:00 Resp 20 01/29/18 06:00 BP 126/85 01/29/18 06:00 Pulse Ox 100 01/29/18 06:00 - Labs Result Diagrams: 01/29/18 07:00 01/29/18 07:00 Labs: Laboratory Results - last 24 hr 01/28/18 01/28/18 01/29/18 16:05 16:05 07:00 WBC 12.3 H D RBC 4.78 Hgb 13.5 L D Hct 41.3 L MCV 86.4 MCH 28.2 MCHC 32.7 RDW 13.3 Plt Count 182 MPV 9.9 Sodium Potassium Chloride Carbon Dioxide Anion Gap BUN Creatinine Est GFR ( Amer) Est GFR (Non-Af Amer) POC Glucose (mg/dL) Random Glucose Calcium Phosphorus Magnesium Total Bilirubin AST ALT Alkaline Phosphatase Total Protein Albumin Globulin Albumin/Globulin Ratio Salicylates < 1 L Urine Opiates Screen Urine Methadone Screen Acetaminophen < 10.0 L Ur Barbiturates Screen Ur Phencyclidine Scrn Ur Amphetamines Screen U Benzodiazepines Scrn U Oth Cocaine Metabols U Cannabinoids Screen Alcohol, Quantitative < 10 01/29/18 01/29/18 01/29/18 07:00 08:30 08:55 WBC RBC Hgb Hct MCV MCH MCHC RDW Plt Count MPV Sodium 141 Potassium 3.3 L Chloride 107 Carbon Dioxide 26 Anion Gap 11 BUN 10 Creatinine 0.7 L Est GFR ( Amer) > 60 Est GFR (Non-Af Amer) > 60 POC Glucose (mg/dL) 105 Random Glucose 88 Calcium 8.6 Phosphorus 2.7 Magnesium 2.1 Total Bilirubin 0.5 AST 33 ALT 41 Alkaline Phosphatase 65 Total Protein 6.1 Albumin 3.6 Globulin 2.6 Albumin/Globulin Ratio 1.4 Salicylates Urine Opiates Screen Positive H Urine Methadone Screen Negative Acetaminophen Ur Barbiturates Screen Negative Ur Phencyclidine Scrn Negative Ur Amphetamines Screen Negative U Benzodiazepines Scrn Negative U Oth Cocaine Metabols Negative U Cannabinoids Screen Positive H Alcohol, Quantitative Assessment & Plan - Assessment and Plan (Free Text) Assessment: 38M with likely gastroparesis presenting with acute on chronic vomiting and likely Giana-Rothman tear. #Hematemesis #Acute on chronic vomiting #Gastroparesis #Opiate use #Marijuana use disorder #DM PLAN: -Patient is improved with zofran. Will start on CLD and advance as tolerated. -Education on avoidance of opiates and marijuana -Continue DM care -Encouraged to f/u with scheduled GI physician in two weeks. Patient agreeable. -Start full liquid diet and advance as tolerated. -Recommend 6 small meals per day with low fat. Okay to d/c patient from GI perspective if tolerating diet. -We will signoff at this time. Please call as needed. - Date & Time Date: 01/29/18 Time: 10:59 <Jose Roberto Kan - Last Filed: 01/29/18 12:32> Meds - Medications Medications: Current Medications Dextrose (Dextrose 50% Inj) 0 ml IV STAT PRN; Protocol PRN Reason: Hypoglycemia Protocol Sodium Chloride (Sodium Chloride 0.9%) 1,000 mls @ 100 mls/hr IV .Q10H [facility] Last Admin: 01/28/18 18:00 Dose: 100 mls/hr Dextrose (Dextrose 5% In Water 1000 Ml) 1,000 mls @ 0 mls/hr IV .Q0M PRN; Protocol; Per Protocol PRN Reason: Hypoglycemia Protocol Insulin Human Lispro (Humalog Low) 0 units SC ACHS INOCENCIA PRN Reason: Protocol Last Admin: 01/29/18 11:45 Dose: Not Given Ondansetron HCl (Zofran Inj) 4 mg IVP Q6H PRN PRN Reason: Nausea/Vomiting Last Admin: 01/29/18 06:04 Dose: 4 mg Pantoprazole Sodium (Protonix Inj) 40 mg IVP DAILY [facility] Last Admin: 01/29/18 09:30 Dose: 40 mg Results - Vital Signs Recent Vital Signs: Last Vital Signs Temp 98.0 F 01/29/18 06:00 Pulse 86 01/29/18 06:00 Resp 20 01/29/18 06:00 BP 126/85 01/29/18 06:00 Pulse Ox 100 01/29/18 06:00 - Labs Result Diagrams: 01/29/18 07:00 01/29/18 07:00 Labs: Laboratory Results - last 24 hr 01/28/18 01/28/18 01/29/18 16:05 16:05 07:00 WBC 12.3 H D RBC 4.78 Hgb 13.5 L D Hct 41.3 L MCV 86.4 MCH 28.2 MCHC 32.7 RDW 13.3 Plt Count 182 MPV 9.9 Sodium Potassium Chloride Carbon Dioxide Anion Gap BUN Creatinine Est GFR ( Amer) Est GFR (Non-Af Amer) POC Glucose (mg/dL) Random Glucose Calcium Phosphorus Magnesium Total Bilirubin AST ALT Alkaline Phosphatase Total Protein Albumin Globulin Albumin/Globulin Ratio Salicylates < 1 L Urine Opiates Screen Urine Methadone Screen Acetaminophen < 10.0 L Ur Barbiturates Screen Ur Phencyclidine Scrn Ur Amphetamines Screen U Benzodiazepines Scrn U Oth Cocaine Metabols U Cannabinoids Screen Alcohol, Quantitative < 10 01/29/18 01/29/18 01/29/18 07:00 08:30 08:55 WBC RBC Hgb Hct MCV MCH MCHC RDW Plt Count MPV Sodium 141 Potassium 3.3 L Chloride 107 Carbon Dioxide 26 Anion Gap 11 BUN 10 Creatinine 0.7 L Est GFR ( Amer) > 60 Est GFR (Non-Af Amer) > 60 POC Glucose (mg/dL) 105 Random Glucose 88 Calcium 8.6 Phosphorus 2.7 Magnesium 2.1 Total Bilirubin 0.5 AST 33 ALT 41 Alkaline Phosphatase 65 Total Protein 6.1 Albumin 3.6 Globulin 2.6 Albumin/Globulin Ratio 1.4 Salicylates Urine Opiates Screen Positive H Urine Methadone Screen Negative Acetaminophen Ur Barbiturates Screen Negative Ur Phencyclidine Scrn Negative Ur Amphetamines Screen Negative U Benzodiazepines Scrn Negative U Oth Cocaine Metabols Negative U Cannabinoids Screen Positive H Alcohol, Quantitative 01/29/18 11:39 WBC RBC Hgb Hct MCV MCH MCHC RDW Plt Count MPV Sodium Potassium Chloride Carbon Dioxide Anion Gap BUN Creatinine Est GFR ( Amer) Est GFR (Non-Af Amer) POC Glucose (mg/dL) 94 Random Glucose Calcium Phosphorus Magnesium Total Bilirubin AST ALT Alkaline Phosphatase Total Protein Albumin Globulin Albumin/Globulin Ratio Salicylates Urine Opiates Screen Urine Methadone Screen Acetaminophen Ur Barbiturates Screen Ur Phencyclidine Scrn Ur Amphetamines Screen U Benzodiazepines Scrn U Oth Cocaine Metabols U Cannabinoids Screen Alcohol, Quantitative Attending/Attestation - Attestation I have personally seen and examined this patient.: Yes I have fully participated in the care of the patient.: Yes I have reviewed all pertinent clinical information: Yes Notes (Text): 01/29/18 12:30 Patient seen with GI fellow on rounds this am. This is a 38 yr old M with likely gastroparesis presenting with acute on chronic vomiting and likely Giana-Rothman tear which has resolved. daily marijuana use may have contributed to cyclical vomiting syndrome and or idiopathic gastroparesis. Will benefit from outpatient gastric emptying study. has appt with GI at [place] in 2 weeks. Marijuana cessation. Diet as tolerated. No GI work up required. Will sign off
[2018-01-29] MEDS ORDERED: Insulin Lispro (humaLOG) LOW Coverage SC SCH (11:30)
== END 2018-01-29 14:56 | disposition home or self-care (01) ==
LOC: ED 09:18 → ERH 15:50 → 3RNO 18:15
PROVIDERS: ADMIT Internal Medicine; ATTEND Hospitalist
DX: R11.2 Nausea with vomiting, unspecified (principal); F12.10 Cannabis abuse, uncomplicated; E10.43 Type 1 diabetes mellitus with diabetic autonomic (poly)neuropathy; F17.210 Nicotine dependence, cigarettes, uncomplicated; I10 Essential (primary) hypertension; K31.84 Gastroparesis; K22.6 Gastro-esophageal laceration-hemorrhage syndrome; Z90.49 Acquired absence of other specified parts of digestive tract
CPT/HCPCS: 36415; 74177; 80053; 80320; 80324; 80329; 80345; 80346; 80349; 80353; 80358; 80361; 81003; 82150; 82948; 83690; 83735; 83992; 84100; 85025; 85027; 85610; 85730; 93005; 96361; 96374; 96375; 96376; 99285; C9113; G0378; J2270; J2405; J7030; Q9967

== ENCOUNTER 2018-06-29 17:58 | Emergency (ER) | payer OTHER ==
[2018-06-29 17:58] VITALS: BMI 27.8
[2018-06-29] MEDS ORDERED: Sodium Chloride 0.9% 1,000 ML IV STA (19:20)
[2018-06-29 20:11] LABS: BASO # 0.02 K/mm3 (0.0-2.0); BASO % 0.3 % (0.0-3.0); EOS % 0.1 % (1.5-5.0); HEMOGLOBIN 15.3 g/dL (14.0-18.0); LYMPH # 2.3 (1.2-3.4); LYMPH % 32.5 % (22.0-35.0); MEAN CELL VOLUME 85.1 fl (80.0-105.0); MEAN CORPUSCULAR HEMOGLOBIN 28.8 pg (25.0-35.0); MEAN CORPUSCULAR HGB CONC 33.8 g/dl (31.0-37.0); MONO # 0.7 (0.1-0.6); MONO % 9.4 % (1.0-6.0); RBC 5.31 10^6/uL (3.5-6.1); RED CELL DISTRIBUTION WIDTH 13.4 % (11.5-14.5)
[2018-06-29 20:14] LABS: VENOUS BLOOD GAS BASE EXCESS 3.2 mmol/L (0.0-2.0); VENOUS BLOOD GAS PO2 30 mm/Hg (30-55); VENOUS BLOOD PH 7.36 (7.32-7.43)
[2018-06-29 20:24] LABS: ALB/GLOB RATIO 1.3 (1.1-1.8); ALBUMIN 4.6 g/dL (3.0-4.8); ALT/SGPT 38 U/L (7-56); AST/SGOT 32 U/L (17-59); BLOOD UREA NITROGEN 9 mg/dL (7-21); GFR NON-AFRICAN AMERICAN > 60; LIPASE 183 U/L (23-300)
[2018-06-29 22:12] LABS: URINE APPEARANCE CLEAR (CLEAR); URINE BILIRUBIN NEGATIVE (NEGATIVE); URINE BLOOD NEGATIVE (NEGATIVE); URINE COLOR YELLOW (YELLOW); URINE GLUCOSE (UA) NEGATIVE (NEGATIVE); URINE LEUKOCYTE ESTERASE NEGATIVE Leu/uL (NEGATIVE); URINE PROTEIN NEGATIVE mg/dL (<30 mg/dL); URINE UROBILINOGEN 0.2 E.U./dL (<1 E.U./dL)
--- NOTE | 2018-06-29 23:46 | ED PDOC ---
Arrival/HPI - General Chief Complaint: GI Problem Time Seen by Provider: 06/29/18 19:15 Historian: Patient - History of Present Illness Narrative History of Present Illness (Text): Delano Rosas is a 38 year old male, whose past medical history includes diabetes, who presents to the emergency department with 4 day history of nausea, vomiting, and LLQ abdominal pain. Patient states he was seen at the [facility] for similar complaints and was told everything was fine and discharged Home. Patient was then seen by his PMD, who prescribed him Zofran and Reglan, but denies any improvement. Patient came to the emergency department for further evaluation. Patient describes pain as crampy, left-sided abdominal pain, non-radiating. Patient complaining of multiple episodes of nausea and vomiting. pt states he has had a cough x 7days, pt denies fever. Patient denies any urinary symptoms, chills, back pain, or any other complaints. Symptom Onset: Gradual Symptom Course: Unchanged Activities at Onset: Light Context: Home Past Medical History - Provider Review Nursing Documentation Reviewed: Yes - Travel History Have you recently traveled outside [place] w/in the past 3 mons?: No - Infectious Disease Hx of Infectious Diseases: None - Cardiac Hx Cardiac Disorders: Yes Hx Hypertension: Yes - Pulmonary Hx Respiratory Disorders: No - Neurological Hx Neurological Disorder: No - HEENT Hx HEENT Disorder: No - Renal Hx Renal Disorder: No - Endocrine/Metabolic Hx Diabetes Mellitus Type 2: Yes (prediabetic) - Hematological/Oncological Hx Blood Disorders: No - Integumentary Hx Dermatological Disorder: No - Musculoskeletal/Rheumatological Hx Falls: No - Gastrointestinal Hx Gastrointestinal Disorders: Yes (INGUINAL HERNIA REPAIR) Hx Gall Bladder Disease: Yes (CHOLECYSTECTOMY) - Genitourinary/Gynecological Hx Genitourinary Disorders: No - Psychiatric Hx Psychophysiologic Disorder: Yes (MARIJUANA USE DAILY X 20 YRS) Hx Substance Use: Yes (marijuana) - Surgical History Hx Cholecystectomy: Yes - Anesthesia Hx Anesthesia: Yes Hx Anesthesia Reactions: No Hx Malignant Hyperthermia: No Family/Social History - Physician Review Nursing Documentation Reviewed: Yes Family/Social History: Unknown Family HX Smoking Status: Former Smoker Hx Alcohol Use: Yes Hx Substance Use: Yes (marijuana) Allergies/Home Meds Allergies/Adverse Reactions: Allergies No Known Allergies Allergy (Verified 01/28/18 19:09) Home Medications: Home Meds Medication Instructions Recorded Confirmed Metoclopramide [Reglan] 1 tab PO QID 06/29/18 06/29/18 Review of Systems - Physician Review All systems were reviewed & negative as marked: Yes - Review of Systems Constitutional: Normal. absent: Fatigue, Fevers ENT: absent: Sore Throat, Sinus Congestion Respiratory: Cough (x 7 days). absent: SOB, Wheezing Cardiovascular: Normal. absent: Chest Pain, Palpitations Gastrointestinal: Abdominal Pain, Nausea, Vomiting. absent: Constipation, Diarrhea Genitourinary Male: Normal, Other (no testicular pain or swelling). absent: Dysuria, Frequency, Hematuria, Urinary Output Changes Musculoskeletal: Normal. absent: Arthralgias, Back Pain, Neck Pain Skin: Normal. absent: Rash Neurological: Normal. absent: Headache, Dizziness Psychiatric: absent: Anxiety, Depression Physical Exam Vital Signs Reviewed: Yes Vital Signs Temp Pulse Resp BP Pulse Ox 06/29/18 18:34 97.8 F 80 18 128/85 99 Temperature: Afebrile Blood Pressure: Normal Pulse: Regular Respiratory Rate: Normal Appearance: Positive for: Well-Appearing, Non-Toxic, Comfortable Pain Distress: None Mental Status: Positive for: Alert and Oriented X 3 - Systems Exam Head: Present: Atraumatic Mouth: Present: Moist Mucous Membranes Neck: Present: Normal Range of Motion Respiratory/Chest: Present: Clear to Auscultation, Good Air Exchange. No: Respiratory Distress, Accessory Muscle Use, Wheezes, Decreased Breath Sounds, Retracting, Rhonchi, Tachypneic Cardiovascular: Present: Regular Rate and Rhythm, Normal S1, S2. No: Murmurs Abdomen: Present: Tenderness (LLQ tenderness), Normal Bowel Sounds. No: Distention, Peritoneal Signs, Rebound, Guarding Back: Present: Normal Inspection. No: CVA Tenderness, Midline Tenderness, Paraspinal Tenderness Upper Extremity: Present: Normal Inspection. No: Cyanosis, Edema Lower Extremity: Present: Normal Inspection. No: Edema Neurological: Present: GCS=15, Speech Normal Skin: Present: Warm, Dry, Normal Color. No: Rashes Psychiatric: Present: Alert, Oriented x 3 Medical Decision Making ED Course and Treatment: 06/29/18 23:43 Patient is nontoxic well appearing with stable vital signs presenting with llq abdominal pain CBC: wnl CMP wnl lipase; wnl pt given zofran, protonix Ivp pt given 1L NS iv bolus Urinalysis + ketones cxr; no infiltrate or effusion CAT scan: FINDINGS: LUNG BASES: The lung bases appear clear. No pleural effusions are seen. LIVER: There is diffuse fatty infiltration of liver. GALLBLADDER AND BILE DUCTS: The gallbladder is surgically absent. PANCREAS: Unremarkable. SPLEEN: Unremarkable. ADRENAL GLANDS: Unremarkable. KIDNEYS, URETERS, AND BLADDER: Bladder is decompressed. STOMACH AND BOWEL: Stomach is decompressed. APPENDIX: Normal appendix is present in the right lower quadrant. PERITONEUM: No pneumoperitoneum. No ascites. LYMPH NODES: No lymphadenopathy is evident. REPRODUCTIVE: The prostate is slightly prominent measuring 5.0 cm transverse. Please correlate clinically. VASCULATURE: No evidence of abdominal aortic aneurysm. BONES: Minimal multilevel degenerative spine changes are present. IMPRESSION: 1. There is diffuse fatty infiltration of liver. 2. The gallbladder is surgically absent. 3. The prostate is slightly prominent measuring 5.0 cm transverse. Please correlate clinically. 4. Additional and incidental findings as described, please see comments. Electronically signed on Jun 29, 2018 11:22:49 PM EST by: Jorge Luis Renee M.D., DELMAR Certified By ABR & CBC[facility] Fellowship Trained MRI and CT Specialist pt given reglan and benadryl. Patient reassessment: pt feeling better; denies any abdominal pain. abdomen non tender. Discussed all results with patient in depth. advised f/u with PMD and GI specialist; advised immediate return if symptoms worsen,persist or if new symptoms develop. Patient verbalizes understanding of discharge instructions and need for immediate followup. All aspects of this case were discussed the attending of record. Impression: Abdominal pain, nausea/vomiting Pepcid one tablet daily increase fluids Follow up with primary care physician within the next 2 days Follow up with the Gi specialist within the next 2 days. Return immediately if symptoms worsen persist or if new symptoms develop: High fevers, increasing pain, vomiting, diarrhea or any other concerning symptoms develop Reassessment Condition: Re-examined, Improved - Lab Interpretations Lab Results: pO2 30 mm/Hg (30-55) 06/29/18 20:00 VBG pH 7.36 (7.32-7.43) 06/29/18 20:00 VBG pCO2 53.0 (40-60) 06/29/18 20:00 VBG HCO3 29.9 mmol/l (21-28) H 06/29/18 20:00 VBG Total CO2 31.5 mmol.L (22-28) H 06/29/18 20:00 VBG O2 Sat (Calc) 71.2 % (40-65) H 06/29/18 20:00 VBG Base Excess 3.2 mmol/L (0.0-2.0) H 06/29/18 20:00 VBG Potassium 3.9 mmol/L (3.6-5.2) 06/29/18 20:00 Sodium 138.0 mmol/L (132-148) 06/29/18 20:00 Chloride 102.0 mmol/L (98-107) 06/29/18 20:00 Glucose 131 mg/dl (75-110) H 06/29/18 20:00 Lactate 1.3 mmol/L (0.7-2.1) 06/29/18 20:00 FiO2 21.0 % 06/29/18 20:00 Total Bilirubin 0.9 mg/dL (0.2-1.3) 06/29/18 20:08 AST 32 U/L (17-59) 06/29/18 20:08 ALT 38 U/L (7-56) 06/29/18 20:08 Alkaline Phosphatase 74 U/L (38-126) 06/29/18 20:08 Total Protein 8.2 g/dL (5.8-8.3) 06/29/18 20:08 Albumin 4.6 g/dL (3.0-4.8) 06/29/18 20:08 Globulin 3.6 gm/dL 06/29/18 20:08 Albumin/Globulin Ratio 1.3 (1.1-1.8) 06/29/18 20:08 Lipase 183 U/L (23-300) 06/29/18 20:08 Urine Color Yellow (YELLOW) 06/29/18 22:00 Urine Appearance Clear (CLEAR) 06/29/18 22:00 Urine pH 8.0 (4.7-8.0) 06/29/18 22:00 Ur Specific [place] 1.015 (1.005-1.035) 06/29/18 22:00 Urine Protein Negative mg/dL (<30 mg/dL) 06/29/18 22:00 Urine Glucose (UA) Negative mg/dL (NEGATIVE) 06/29/18 22:00 Urine Ketones 40 mg/dL (NEGATIVE) H 06/29/18 22:00 Urine Blood Negative (NEGATIVE) 06/29/18 22:00 Urine Nitrate Negative (NEGATIVE) 06/29/18 22:00 Urine Bilirubin Negative (NEGATIVE) 06/29/18 22:00 Urine Urobilinogen 0.2 E.U./dL (<1 E.U./dL) 06/29/18 22:00 Ur Leukocyte Esterase Negative Aleida/uL (NEGATIVE) 06/29/18 22:00 I have reviewed the lab results: Yes - RAD Interpretation Radiology Orders: 06/29/18 21:05 ABD & PELVIS IV CONTRAST ONLY [CT] Stat Teaching Associate: Radiologist - Medication Orders Current Medication Orders: Discontinued Medications Diphenhydramine HCl (Benadryl) 25 mg PO ONCE ONE Stop: 06/29/18 23:37 Sodium Chloride (Sodium Chloride 0.9%) 1,000 mls @ 999 mls/hr IV .Q1H1M STA Stop: 06/29/18 20:20 Last Admin: 06/29/18 20:00 Dose: 999 mls/hr eMAR Start Stop Document 06/29/18 20:00 EB (Rec: 06/29/18 20:01 [id number]) Intravenous Solution Start Date 06/29/18 Start Time 20:00 Metoclopramide HCl (Reglan) 10 mg IVP STAT STA Stop: 06/29/18 23:37 Ondansetron HCl (Zofran Inj) 4 mg IVP STAT STA Stop: 06/29/18 19:50 Last Admin: 06/29/18 20:27 Dose: 4 mg IVP Administration Document 06/29/18 20:27 EB (Rec: 06/29/18 20:29 EB [id number]) Charges for Administration # of IVP Administrations 1 Pantoprazole Sodium (Protonix Inj) 40 mg IVP STAT STA Stop: 06/29/18 20:43 Last Admin: 06/29/18 21:07 Dose: 40 mg IVP Administration Document 06/29/18 21:07 EB (Rec: 06/29/18 21:07 [id number]) Charges for Administration # of IVP Administrations 1 - Scribe Statement The provider has reviewed the documentation as recorded by the Everardo Wilder Provider Scribe Attestation: All medical record entries made by the Scribe were at my direction and personally dictated by me. I have reviewed the chart and agree that the record accurately reflects my personal performance of the history, physical exam, medical decision making, and the department course for this patient. I have also personally directed, reviewed, and agree with the discharge instructions and disposition. Disposition/Present on Arrival - Present on Arrival Any Indicators Present on Arrival: No History of DVT/PE: No History of Uncontrolled Diabetes: No Urinary Catheter: No History of Decub. Ulcer: No History Surgical Site Infection Following: None - Disposition Have Diagnosis and Disposition been Completed?: Yes Diagnosis: Abdominal pain, Nausea & vomiting Disposition: HOME/ ROUTINE Disposition Time: 23:47 Patient Plan: Discharge Patient Problems: Current Active Problems Problem Status Onset Abdominal pain Acute Nausea & vomiting Acute Condition: GOOD Discharge Instructions (ExitCare): Acute Abdomen (Belly Pain), Nausea and Vomiting, Adult Additional Instructions: Pepcid one tablet daily increase fluids Follow up with primary care physician within the next 2 days Follow up with the Gi specialist within the next 2 days. Return immediately if symptoms worsen persist or if new symptoms develop: High fevers, increasing pain, vomiting, diarrhea or any other concerning symptoms develop Prescriptions: Famotidine [Pepcid] 20 mg PO DAILY #30 tab Referrals: Ji Guerrero MD [Staff Provider] - Follow up with primary Cuba Young MD [Family Provider] - Follow up with primary Forms: [facility] (Albanian), WORK NOTE
[2018-06-30 00:08] VITALS: PULSE 72; RESP 17; TEMP 98
[2018-06-30 01:05] VITALS: BP 115/78; O2SAT 99
--- NOTE | 2018-06-30 07:48 | RAD ---
Date of service: 06/30/2018 HISTORY: vomiting COMPARISON: Portable chest 02/01/2018. FINDINGS: LUNGS: Diminished inspiratory effort. No acute consolidation bilaterally. PLEURA: No significant pleural effusion identified, no pneumothorax apparent. CARDIOVASCULAR: No aortic atherosclerotic calcification present. Normal cardiac size. No pulmonary vascular congestion. OSSEOUS STRUCTURES: No significant abnormalities. VISUALIZED UPPER ABDOMEN: Normal. OTHER FINDINGS: None. IMPRESSION: Diminished inspiratory volume. No acute infiltrate, pleural effusion, pulmonary vascular congestion or cardiomegaly. No pneumothorax bilaterally.
--- NOTE | 2018-06-30 08:19 | CT ---
Date of service: 06/29/2018 PROCEDURE: CT Abdomen and Pelvis with contrast HISTORY: left sided abdominal pain COMPARISON: None. TECHNIQUE: Contrast dose: 147 cc of Omni 350 Radiation dose: Total exam DLP = 879.74 mGy-cm. This CT exam was performed using one or more of the following dose reduction techniques: Automated exposure control, adjustment of the mA and/or kV according to patient size, and/or use of iterative reconstruction technique. FINDINGS: LOWER THORAX: Unremarkable. LIVER: There is fatty infiltration of the liver GALLBLADDER AND BILE DUCTS: Gallbladder removed PANCREAS: Unremarkable. No gross lesion or ductal dilatation. SPLEEN: Unremarkable. ADRENALS: Unremarkable. No mass. KIDNEYS AND URETERS: Unremarkable. No hydronephrosis. No solid mass. VASCULATURE: Unremarkable. No aortic aneurysm. No aortic atherosclerotic calcification or mural plaque present. BOWEL: Unremarkable. No obstruction. No gross mural thickening. APPENDIX: Normal appendix. PERITONEUM: Unremarkable. No free fluid. No free air. LYMPH NODES: Unremarkable. No enlarged lymph nodes. BLADDER: Unremarkable. REPRODUCTIVE: Unremarkable. BONES: No acute fracture. OTHER FINDINGS: The report concurs with the preliminary [facility] report IMPRESSION: No acute intra-abdominal abnormalities
== END 2018-06-30 01:03 | disposition home or self-care (01) ==
LOC: ED 17:58
DX: R10.32 Left lower quadrant pain (principal); R11.2 Nausea with vomiting, unspecified; E11.9 Type 2 diabetes mellitus without complications; I10 Essential (primary) hypertension; Z87.891 Personal history of nicotine dependence
CPT/HCPCS: 71045; 74177; 80053; 81003; 82803; 83690; 85025; 96374; 96375; 99283; C9113; J2405; J2765; J7030; Q9967

== ENCOUNTER 2018-06-30 13:06 | Emergency (ER) | payer OTHER ==
[2018-06-30 13:07] VITALS: BMI 27.8
[2018-06-30 13:29] VITALS: RESP 18; TEMP 97.5; O2SAT 100
[2018-06-30 14:57] LABS: URINE BILIRUBIN NEGATIVE (NEGATIVE); URINE BLOOD NEGATIVE (NEGATIVE); URINE GLUCOSE (UA) NEGATIVE (NEGATIVE); URINE LEUKOCYTE ESTERASE NEGATIVE Leu/uL (NEGATIVE); URINE PROTEIN TRACE mg/dL (<30 mg/dL); URINE UROBILINOGEN 0.2 E.U./dL (<1 E.U./dL)
[2018-06-30 15:00] LABS: URINE APPEARANCE CLEAR (CLEAR); URINE COLOR YELLOW (YELLOW)
[2018-06-30 15:01] LABS: BASO # 0.04 K/mm3 (0.0-2.0); BASO % 0.5 % (0.0-3.0); EOS % 0.2 % (1.5-5.0); HEMOGLOBIN 15.6 g/dL (14.0-18.0); LYMPH # 2.2 (1.2-3.4); LYMPH % 26.4 % (22.0-35.0); MEAN CELL VOLUME 85.1 fl (80.0-105.0); MEAN CORPUSCULAR HEMOGLOBIN 29.1 pg (25.0-35.0); MEAN CORPUSCULAR HGB CONC 34.1 g/dl (31.0-37.0); MEAN PLATELET VOLUME 10.5 fl (7.0-11.0); MONO # 0.6 (0.1-0.6); MONO % 6.9 % (1.0-6.0); RBC 5.37 10^6/uL (3.5-6.1); RED CELL DISTRIBUTION WIDTH 13.5 % (11.5-14.5); WHITE BLOOD COUNT 8.2 10^3/uL (4.5-11.0)
[2018-06-30 15:04] LABS: URINE AMORPHOUS SEDIMENT FEW /hpf; URINE BACTERIA MOD /hpf; URINE EPITHELIAL CELLS 0 - 2 /hpf (0-5); URINE RBC 0 - 2 /hpf (0-2)
[2018-06-30 15:07] LABS: BARBITURATES, UR NEGATIVE (NEGATIVE); BENZODIAZEPINES, UR NEGATIVE (NEGATIVE); OPIATES, UR NEGATIVE (NEGATIVE); PHENCYCLIDINE, UR NEGATIVE (NEGATIVE)
--- NOTE | 2018-06-30 15:08 | ED PDOC ---
Arrival/HPI - General Chief Complaint: Abdominal Pain Time Seen by Provider: 06/30/18 13:09 Historian: Patient - History of Present Illness Narrative History of Present Illness (Text): 06/30/18 15:02 38yo male with history of Marijuana use who present with complaint of LLQ abdominal pain and constipation x one week. Patient alleged pain started this morning. +Nausea. Denies vomiting, diarrhea, fever, chills, chest pain, urinary symptoms, back pain, sick contact, travel, any other complaint. Past Medical History - Provider Review Nursing Documentation Reviewed: Yes - Infectious Disease Hx of Infectious Diseases: None - Cardiac Hx Cardiac Disorders: Yes Hx Hypertension: Yes - Pulmonary Hx Respiratory Disorders: No - Neurological Hx Neurological Disorder: No - HEENT Hx HEENT Disorder: No - Renal Hx Renal Disorder: No - Endocrine/Metabolic Hx Diabetes Mellitus Type 2: Yes (prediabetic) - Hematological/Oncological Hx Blood Disorders: No - Integumentary Hx Dermatological Disorder: No - Musculoskeletal/Rheumatological Hx Falls: No - Gastrointestinal Hx Gastrointestinal Disorders: Yes (INGUINAL HERNIA REPAIR) Hx Gall Bladder Disease: Yes (CHOLECYSTECTOMY) - Genitourinary/Gynecological Hx Genitourinary Disorders: No - Psychiatric Hx Psychophysiologic Disorder: Yes (MARIJUANA USE DAILY X 20 YRS) Hx Substance Use: Yes (marijuana) - Surgical History Hx Cholecystectomy: Yes - Anesthesia Hx Anesthesia: Yes Hx Anesthesia Reactions: No Hx Malignant Hyperthermia: No Family/Social History - Physician Review Nursing Documentation Reviewed: Yes Family/Social History: Unknown Family HX Smoking Status: Former Smoker Hx Alcohol Use: Yes Hx Substance Use: Yes (marijuana) Allergies/Home Meds Allergies/Adverse Reactions: Allergies No Known Allergies Allergy (Verified 01/28/18 19:09) Home Medications: Home Meds Medication Instructions Recorded Confirmed Metoclopramide [Reglan] 1 tab PO QID 06/29/18 06/30/18 Review of Systems - Physician Review All systems were reviewed & negative as marked: Yes - Review of Systems Constitutional: Normal Eyes: Normal ENT: Normal Respiratory: Normal Cardiovascular: Normal Gastrointestinal: Abdominal Pain, Constipation, Nausea. absent: Diarrhea, Vomiting Genitourinary Male: Normal Musculoskeletal: Normal Skin: Normal Neurological: Normal Endocrine: Normal Hemo/Lymphatic: Normal Psychiatric: Normal Physical Exam Vital Signs Reviewed: Yes Vital Signs Temp Pulse Resp BP Pulse Ox 06/30/18 13:29 97.5 F L 74 18 147/94 H 100 Temperature: Afebrile Blood Pressure: Normal Pulse: Regular Respiratory Rate: Normal Appearance: Positive for: Well-Appearing, Non-Toxic, Comfortable Pain Distress: None Mental Status: Positive for: Alert and Oriented X 3 - Systems Exam Head: Present: Atraumatic, Normocephalic Pupils: Present: PERRL Extroacular Muscles: Present: EOMI Conjunctiva: Present: Normal Mouth: Present: Moist Mucous Membranes Neck: Present: Normal Range of Motion Respiratory/Chest: Present: Clear to Auscultation, Good Air Exchange. No: Respiratory Distress, Accessory Muscle Use Cardiovascular: Present: Regular Rate and Rhythm, Normal S1, S2. No: Murmurs Abdomen: Present: Tenderness (Mild LLQ tenderness with deep palpation), Normal Bowel Sounds, Other (Soft). No: Distention, Peritoneal Signs, Rebound, Guarding, McBurney's Point Tender, Rovsing's Sign Present Back: Present: Normal Inspection Upper Extremity: Present: Normal Inspection. No: Cyanosis, Edema Lower Extremity: Present: Normal Inspection. No: Edema Neurological: Present: GCS=15, CN II-XII Intact, Speech Normal Skin: Present: Warm, Dry, Normal Color. No: Rashes Psychiatric: Present: Alert, Oriented x 3, Normal Insight, Normal Concentration Medical Decision Making ED Course and Treatment: 06/30/18 15:05 38yo male with pmhx of drug abuse who present with stated history. Labs Reglan, Zofran, Protonix, 1L NS EKG EKG NSR 66bpm. On re evaluation pt noted that his pain improved in ED. He was sleeping comfortably in ED Her chart from yesterday was reviewed and she had normal abdominal/pelvic CT with labs Case was DW the PMD, Dr. Young and he agreed with the pl;an to DC pt home. - Lab Interpretations Lab Results: Urine Color Yellow (YELLOW) 06/30/18 14:30 Urine Appearance Clear (CLEAR) 06/30/18 14:30 Urine pH 6.0 (4.7-8.0) 06/30/18 14:30 Ur Specific [place] 1.025 (1.005-1.035) 06/30/18 14:30 Urine Protein Trace mg/dL (<30 mg/dL) H 06/30/18 14:30 Urine Glucose (UA) Negative mg/dL (NEGATIVE) 06/30/18 14:30 Urine Ketones Trace mg/dL (NEGATIVE) H 06/30/18 14:30 Urine Blood Negative (NEGATIVE) 06/30/18 14:30 Urine Nitrate Negative (NEGATIVE) 06/30/18 14:30 Urine Bilirubin Negative (NEGATIVE) 06/30/18 14:30 Urine Urobilinogen 0.2 E.U./dL (<1 E.U./dL) 06/30/18 14:30 Ur Leukocyte Esterase Negative Aleida/uL (NEGATIVE) 06/30/18 14:30 - Medication Orders Current Medication Orders: Discontinued Medications Metoclopramide HCl (Reglan) 10 mg IVP STAT STA Stop: 06/30/18 14:00 Last Admin: 06/30/18 14:33 Dose: 10 mg IVP Administration Document 06/30/18 14:33 LA (Rec: 06/30/18 14:33 LA [id number]) Charges for Administration # of IVP Administrations 1 Ondansetron HCl (Zofran Inj) 4 mg IVP ONCE ONE Stop: 06/30/18 14:00 Last Admin: 06/30/18 14:34 Dose: 4 mg IVP Administration Document 06/30/18 14:34 LA (Rec: 06/30/18 14:34 [id number]) Charges for Administration # of IVP Administrations 1 Pantoprazole Sodium (Protonix Inj) 40 mg IVP STAT STA Stop: 06/30/18 13:59 Last Admin: 06/30/18 14:34 Dose: 40 mg IVP Administration Document 06/30/18 14:34 [place] (Rec: 06/30/18 14:34 [place] [id number] Charges for Administration # of IVP Administrations 1 Disposition/Present on Arrival - Present on Arrival Any Indicators Present on Arrival: No History of DVT/PE: No History of Uncontrolled Diabetes: No Urinary Catheter: No History of Decub. Ulcer: No History Surgical Site Infection Following: None - Disposition Have Diagnosis and Disposition been Completed?: Yes Diagnosis: Abdominal pain Disposition: HOME/ ROUTINE Disposition Time: 16:10 Patient Plan: Discharge Condition: STABLE Discharge Instructions (ExitCare): Acute Abdomen (Belly Pain), Adult (DC) Additional Instructions: Follow up with your Doctor/GI Return to ED for any new or worsening symptoms Referrals: Cuba Young MD [Family Provider] - Follow up with primary Forms: VIAP (Thai)
[2018-06-30 15:11] LABS: INR 1.16; PARTIAL THROMBOPLASTIN TIME 31.4 Seconds (26.9-38.3); PROTHROMBIN TIME 12.9 SECONDS (9.4-12.5)
[2018-06-30] MEDS ORDERED: Sodium Chloride 0.9% 1,000 ML IV STA (15:13)
[2018-06-30 16:19] VITALS: BP 145/85; PULSE 69
--- NOTE | 2018-07-01 00:32 | CON ---
DATE: 06/30/2018 HISTORY OF PRESENT ILLNESS: The patient is a 38-year-old male who was seen in the office yesterday for complaints of intractable nausea, vomiting. Apparently the patient later on came to the [facility] emergency room for evaluation, was treated and released after IV fluids and nausea medicines were given. The patient had lab work done yesterday and a CAT scan done which was negative and the patient was discharged home. The patient again came to the office today with same intractable nausea, vomiting, abdominal pain. Again, the patient came back to the [facility] emergency room for an evaluation. 14-systems review is positive for nausea, vomiting, abdominal pain. CODE STATUS: Full code. LIVING WILL/ADVANCE DIRECTIVE: None. ALLERGIES: NONE. SOCIAL HISTORY: Positive for drug abuse. Positive for marijuana. Positive for recreational drug use. Positive for alcohol use. Positive for former smoker. 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 PAST MEDICAL/SURGICAL HISTORY: History of diabetes mellitus, history of questionable hyperlipidemia, history of hypovitaminosis D, history of cholecystectomy, history of inguinal hernia surgery. History of marijuana, alcohol use, smoking. The patient's past medical history is also significant for noncompliance. The patient's past medical history is significant for history of intractable nausea, vomiting secondary to marijuana and cannabinoids induced hyperemesis syndrome, history of marijuana dependence, history of nicotine and alcohol use, history of type 2 diabetes mellitus, history of poor compliance, history of antral gastritis, history of hiatal hernia, history of esophagogastroduodenoscopy, history of antral gastritis without bleeding, history of hiatal hernia, history of questionable hypertension, history of diabetic gastroparesis, history of transaminitis, history of hepatic steatosis with hepatomegaly, history of nicotine, alcohol, marijuana abuse and dependence, history of right lower lobe calcified granuloma, history of hepatic steatosis, history of questionable right middle lobe, right lower lobe pneumonia, possibly community acquired. The patient's past medical history is also significant for marijuana use and alcohol use and smoking, history of intractable nausea, vomiting, history of marijuana dependence. The patient listed home medications are incorrect. The patient is on Zofran 4 p.o. every 8 hours, Reglan 10 mg q.i.d., folic acid and Dexilant and Pepcid. PHYSICAL EXAMINATION: GENERAL: The patient was seen in the emergency room, bed #13. The patient's grandmother is at bedside. The patient is awake, responsive. The patient is complaining of abdominal pain, nausea, vomiting. The patient is seen lying in the stretcher in the emergency room, bed #13. VITAL SIGNS: T-max is 97.5, heart rate is 69-74, blood pressure 145/85, 147/94, respiration 18, O2 sat 100%. HEENT: The patient's head examination normocephalic, atraumatic. HEENT examination shows pink conjunctivae. Anicteric sclerae. No oropharyngeal lesion. Dry oral mucosa. NECK: No neck rigidity. CHEST: Kyphosis. LUNGS: No audible crackle, rales or wheezing. CARDIOVASCULAR: S1, S2, regular rhythm. ABDOMEN: Soft. Positive bowel sounds. Mild epigastric tenderness. No rebound tenderness. No palpable hepatosplenomegaly. No costovertebral angle tenderness. GENITALIA: Male. RECTAL: Deferred. EXTREMITIES: No pitting edema, no calf numbness, no Homans' sign. NEUROLOGIC: The patient is alert, awake, oriented x3. Cranial nerves II-XII intact. Gait examination is independent. Neuro examination without any deficit. VASCULAR: Palpable pulses. Plantars are downward. CBC from 06/30 within normal limit. PT/PTT is normal. Urine: Trace protein, trace ketones, moderate bacteria. Urine drug screen positive for cocaine and cannabinoids. As mentioned, the patient was in the emergency room on 06/29, which was yesterday. The patient's lab data from 06/29 was also reviewed. The CBC from 06/29 was also within normal limit. Lactate was normal. Chemistry was within normal limit with glucose of 125 and lipase of 183 which was normal. Urinalysis shows 43 ketones on 06/29. No urine drug screen was done on 06/29. The patient had a CAT scan of the abdomen and pelvis done in the emergency room, which was performed with IV contrast, which shows hepatic steatosis and cholecystectomy. The patient's chest x-ray was done in the emergency room on 06/29 which was reported to be negative for any infiltrate. TREATMENT IN THE EMERGENCY ROOM: The patient was seen and evaluated in the emergency room. The patient was given IV fluid wide open. The patient was given IV Reglan 10 mg, Protonix 40 IV, Zofran 4-8 mg IV was given. The patient was evaluated. The patient had an EKG done, results of which are pending. The patient was stabilized in the emergency room. With above treatment the patient's symptoms improved. The patient symptoms improved, pain improved in the ER with the above treatment, and the patient slept well for the duration of the emergency room after treatment. The patient received Reglan 10 mg IV, IV fluids, Zofran and IV Protonix. IMPRESSION 1. Refractory questionable intractable nausea, vomiting, abdominal pain secondary to cocaine and cannabinoids and marijuana abuse and dependence. 2. Cocaine and cannabinoids induced hyperemesis syndrome and abdominal pain. 3. Poor compliance. 4. Trace proteinuria, ketonuria. 5. Urine drug screen positive for cocaine and cannabinoids. 6. Type 2 diabetes mellitus. 7. History of hypertension. 8. Questionable history of hyperlipidemia. 9. Hepatic steatosis. 10. Cholecystectomy. PLAN: The patient was seen in the emergency room. The patient received Reglan, Protonix, and Zofran. The patient was stabilized in the emergency room. The patient's symptoms resolved completely after above treatment. The patient slept for significant amount of time during this emergency room. The patient's nausea and vomiting and abdominal pain subsided significantly and the patient was discharged by the ER attending. The patient was advised to follow up in the office. The patient was counseled about cessation of alcohol use, cessation of smoking, cessation of marijuana and cocaine use and polysubstance drug abuse, which he acknowledged and understood. Dictated and electronically signed, not read. Cuba Young MD
--- NOTE | 2018-07-01 07:25 | CARD ---
APPROVED REPORT Date of service: 06/30/2018 EKG Measurement Heart [id number] <Conclusion> Normal sinus rhythm Normal ECG
== END 2018-06-30 16:24 | disposition home or self-care (01) ==
LOC: ED 13:06
DX: R10.32 Left lower quadrant pain (principal); I10 Essential (primary) hypertension; E11.9 Type 2 diabetes mellitus without complications; Z87.891 Personal history of nicotine dependence
CPT/HCPCS: 80324; 80345; 80346; 80349; 80353; 80358; 80361; 81001; 83992; 85025; 85610; 85730; 93005; 96361; 96374; 96375; 99283; C9113; J2405; J2765; J7030